=== PATIENT | male | born 1995 | race Caucasian/White ===

== ENCOUNTER 2018-07-14 12:31 | Inpatient (IN) | payer MEDICAID ==
[2018-07-14 12:46] VITALS: BMI 27.0
--- NOTE | 2018-07-14 13:31 | C.PDOC ---
History Of Present Illness 23 year old male presents to the ED requesting alcohol detox. Patient has already been prescreened. He states his last alcohol intake was earlier today. Patient denies suicidal/homicidal ideation. Time Seen by Provider: 07/14/18 13:17 Chief Complaint (Nursing): Substance Abuse History Per: Patient History/Exam Limitations: no limitations Onset/Duration Of Symptoms: Hrs Current Symptoms Are (Timing): Still Present Suicide/Self Injury Attempted (Context): None Modifying Factor(s): Alcohol Associated Symptoms: denies: Suicidal Thoughts, Suicidal Plan Involuntary Hold By: None Recent travel outside of the [place]: No Additional History Per: Patient Past Medical History Reviewed: Historical Data, Nursing Documentation, Vital Signs Vital Signs: Last Vital Signs Temp 98.4 F 07/14/18 12:50 Pulse 104 H 07/14/18 12:50 Resp 18 07/14/18 12:50 BP 148/91 H 07/14/18 12:50 Pulse Ox 96 07/14/18 12:50 - Medical History PMH: No Chronic Diseases Surgical History: No Surg Hx Family History: States: Unknown Family Hx - Social History Hx Alcohol Use: Yes Hx Substance Use: No - Immunization History Hx Tetanus Toxoid Vaccination: No Hx Influenza Vaccination: No Hx Pneumococcal Vaccination: No Review Of Systems Psych: Positive for: Other (alcohol detox ). Negative for: Suicidal ideation Physical Exam - Physical Exam Appears: Non-toxic, No Acute Distress Skin: Normal Color, Warm, Dry Head: Atraumatic, Normacephalic Eye(s): bilateral: Normal Inspection, PERRL, EOMI Oral Mucosa: Moist Neck: Normal ROM, Supple Chest: Symmetrical, No Deformity Cardiovascular: Rhythm Regular, No Friction Rub, No Murmur Respiratory: No Accessory Muscle Use, No Wheezing Gastrointestinal/Abdominal: Soft, No Tenderness Back: Normal Inspection, No CVA Tenderness Extremity: Normal ROM Neurological/Psych: Normal Speech, Normal Cognition Gait: Steady ED Course And Treatment - Laboratory Results Result Diagrams: 07/14/18 13:43 07/14/18 13:43 O2 Sat by Pulse Oximetry: 96 (on RA) Pulse Ox Interpretation: Normal Medical Decision Making Medical Decision Making: Progress: Bloodwork and urinalysis ordered and reviewed. The patient is medically cleared for detox admission Disposition - Disposition Disposition: HOSPITALIZED Disposition Time: 14:39 Condition: STABLE Forms: [facility] (Trinidadian) - POA Present On Arrival: None - Clinical Impression Clinical Impression: Alcohol dependence - PA / LITIGATION SERVICES MANAGER / Resident Statement MD/DO has reviewed & agrees with the documentation as recorded. - Scribe Statement The provider has reviewed the documentation as recorded by the Scribe (Dominique Christianson) All medical record entries made by the Scribe were at my direction and personally dictated by me. I have reviewed the chart and agree that the record accurately reflects my personal performance of the history, physical exam, medical decision making, and the department course for this patient. I have also personally directed, reviewed, and agree with the discharge instructions and disposition.
[2018-07-14 13:55] LABS: URINE BILIRUBIN NEGATIVE (NEGATIVE); URINE CLARITY Clear (Clear); URINE COLOR Colorless (YELLOW); URINE GLUCOSE (UA) NORMAL (Normal); URINE LEUKOCYTE ESTERASE NEG Leu/uL (Negative); URINE PROTEIN NEGATIVE (NEGATIVE); URINE UROBILINOGEN NORMAL mg/dL (0.2-1.0)
[2018-07-14 13:59] LABS: BASO # 0.1 K/uL (0.0-0.2); BASO % 0.5 % (0.0-2.0); EOS # 0.1 K/uL (0.0-0.7); EOS % 1.2 % (0.0-4.0); HEMOGLOBIN 14.5 g/dL (12.0-18.0); LYMPH # 1.3 K/uL (1.0-4.3); LYMPH % 10.4 % (20.0-40.0); MEAN CELL VOLUME 78.4 fL (80.0-94.0); MEAN CORPUSCULAR HEMOGLOBIN 26.2 pg (27.0-31.0); MEAN CORPUSCULAR HGB CONC 33.4 g/dL (33.0-37.0); MEAN PLATELET VOLUME 8.3 fL (7.2-11.7); MONO # 0.7 K/uL (0.0-0.8); MONO % 5.5 % (0.0-10.0); NEUT # 10.2 K/uL (1.8-7.0); NEUT % 82.4 % (50.0-75.0); RBC 5.55 Mil/uL (4.40-5.90); RED CELL DISTRIBUTION WIDTH 14.4 % (11.5-14.5); WHITE BLOOD COUNT 12.4 K/uL (4.8-10.8)
[2018-07-14 14:01] LABS: ALB/GLOB RATIO 1.4 (1.0-2.1); ALBUMIN 4.9 g/dL (3.5-5.0); ALT/SGPT 26 U/L (21-72); AST/SGOT 42 U/L (17-59); BLOOD UREA NITROGEN 7 mg/dL (9-20); CALCIUM 9.4 mg/dl (8.6-10.4); GFR NON-AFRICAN AMERICAN > 60
[2018-07-14 14:03] LABS: URINE BLOOD NEGATIVE (NEGATIVE)
[2018-07-14 14:15] LABS: BARBITURATES, UR NEGATIVE (NEGATIVE); BENZODIAZEPINES, UR NEGATIVE (NEGATIVE); OPIATES, UR NEGATIVE (NEGATIVE); PHENCYCLIDINE, UR NEGATIVE (NEGATIVE)
[2018-07-14] MEDS: Multiple Vitamins Tab PO SCH (17:43)
--- NOTE | 2018-07-14 20:49 | PCM.BM ---
Treatment Plan Problems - Problems identified on initial assessmt Potential for alcohol withdrawal Date Initiated: 07/14/18 Time Initiated: 20:48 Assessment reference: NA Status: Active Treatment assets and liabiliti Patient Assests: cooperative (Alcohol), ADL independent, negotiates basic needs, cognitively intact Patient Liabilities: substance abuse (alcohol) - Milieu Protocol Maintain good personal hygiene: daily Encourage regular showers, daily Remind patient to perform daily oral care, daily Assist patient to perform ADL's Conduct patient checks and document Observation sheet: Q15 minutes Maintain personal safety: every shift Educate patient to report safety concerns to staff, every shift Monitor environment for contraband/sharps Medication safety: Monitor for expected outcome, potential side effects: every shift, Assess barriers to learning: every shift, Assess readiness for medication education: every shift
[2018-07-15] MEDS: Multiple Vitamins Tab PO SCH (09:40)
--- NOTE | 2018-07-15 19:19 | PCM.PSYCH ---
Initial Psychiatric Evaluation - Initial Psychiatric Evaluation Type of Admission: Voluntary Legal Status: Capacity Chief Complaint (in patient's own words): I have problem with alcohol use. History of Present Illness and Precipitating Events: Patient is a 23 years old, single, unemployed, Citizen Of [place] male with history of alcohol use disorder and anxiety was admitted due to withdrawing from alcohol. Alcohol: Patient started alcohol at 15 years of age, increased gradually currently he was drinking 10 pints of beer daily. Last drink was yesterday. Longest period of abstinence was one month about 2 months ago. History of one detox and one rehabilitation. Next Denied use of any other drugs including cocaine, cannabis and heroin. Denied use of cigarettes. Patient was born in [place], moved to [facility] at1 years of age with family. Patient has some college education, not working for last 1 year. Lives with parents and is supported by parents. Never and has no children. Patient height is 6 feet 1 inch and weight is 205 pounds. Current Medications: Active Medications Generic Name Dose Route Start Last Admin Trade Name Freq PRN Reason Stop Dose Admin Chlordiazepoxide 25 mg 07/14/18 18:00 07/15/18 18:29 Librium PO 07/18/18 17:59 25 mg TID VALERIA Administration Taper Chlordiazepoxide 25 mg 07/14/18 17:21 Librium PO Q4H PRN Alcohol Withdrawal Clonidine HCl 0.1 mg 07/14/18 17:21 Catapres PO Q4H PRN Symptoms of alcohol withdrawl Folic Acid 1 mg 07/14/18 17:30 07/15/18 09:40 Folic Acid PO 1 mg DAILY VALERIA Administration Gabapentin 300 mg 07/14/18 18:00 07/15/18 18:29 Neurontin PO 300 mg TID VALERIA Administration Hydroxyzine HCl 25 mg 07/15/18 16:06 07/15/18 16:42 Atarax PO 25 mg Q8 PRN Administration Anxiety Ibuprofen 400 mg 07/14/18 17:23 Motrin Tab PO Q6 PRN Pain, moderate (4-7) Multivitamins 1 tab 07/14/18 17:30 07/15/18 09:40 Hexavitamin PO 1 tab DAILY VALERIA Administration Thiamine HCl 100 mg 07/14/18 17:30 07/15/18 09:40 Vitamin B1 Tab PO 100 mg DAILY VALERIA Administration Trazodone HCl 50 mg 07/14/18 17:21 07/14/18 21:03 Desyrel PO 50 mg HS PRN Administration Insomnia Past Psychiatric History - Past Psychiatric History Previous Treatment History: Inpatient Prior Professional Help: One detox and one rehabilitation. History of Abuse: None reported History of ETOH/Drug Use: See HPI History of Family Illness: None reported Pertinent Medical Hx (Current Medical&Sleep Prob, Allergies): Allergies Allergy/AdvReac Type Severity Reaction Status Date / Time No Known Allergies Allergy Verified 07/14/18 12:45 RX: No Known Home Med 07/14/18 Review of Systems - Psychiatric Psychiatric: As Per HPI, Anxiety Mental Status Examination - Personal Presentation Personal Presentation: Looks stated age - Affect Affect: Other (Appropriate) - Motor Activity Motor Activity: Calm - Reliability in Providing Information Reliability in Providing Information: Fair - Speech Speech: Organized - Mood Mood: Anxious - Formal Thought Process Formal Thought Process: No Impairment - Hallucinations/Delusions Hallucinations: Other (None reported) - Obsessions/Compulsions Obsessions: None Compulsions: None - Cognitive Functions Orientation: Person, Place, Situation, Time Sensorium: Alert Attention/Concentration: Attentive Abstract Thinking: [place] Estimate of Intelligence: Average Judgement: Intact, as evidence by: Insight regarding need for hospitalization Memory: Recent intact, as evidence by: Ability to recall events of the day, Remote intact, as evidenced by: Ability to recall historical events - Risk Risk: Withdrawal, Diminished functioning - Strength & Assets Inventory Strength & Assets Inventory: Family support, Cooperative - Limitations Limitations: Other (Lives with parents.) DSM 5 DX - DSM 5 DSM 5 Diagnosis: Alcohol withdrawal. Alcohol use disorder severe - Recommended/Plan of Treatment Treatment Recommendations and Plan of Treatment: Patient education. Supportive therapy. CBT for relapse prevention. MA for abstinence. We'll start Librium taper for alcohol withdrawal symptoms. Next and other when necessary medications. Projected ELOS: 4-5 days - Smoking Cessation Smoking Cessation Initiated: No Reason for not providing: Patient doesn't smoke cigarettes.
[2018-07-16] MEDS: Multiple Vitamins Tab PO SCH (09:20)
--- NOTE | 2018-07-16 14:44 | PCM.PYCHPN ---
Psychiatric Progress Note - Psychiatric Progress Note Patient seen today, length of contact: 15 minutes Patient Chief Complaint: I'm feeling little better. Problems Identified/Issues Discussed: Patient seen, chart reviewed, case discussed with the staff. Issues related to illness and treatment were discussed with the patient and staff. Reported compliant with treatment with no adverse effects. Tolerating treatment very well. Reported feeling little better. Still has some withdrawal symptoms including anxiety, body aches, decreased sleep. Awake, alert and oriented 3. Calm and cooperative with good eye contact. Mood reported as anxious. Affect appropriate. Treatment discussed with the patient. Needs more time for stabilization. Aftercare discussed with the patient. Denied any delusions, auditory or visual hallucinations, suicidal ideations or homicidal ideations at the time of evaluation. Medical Problems: None reported Diagnostic Results: Reviewed DSM 5 Symptoms Update: Some improvement with treatment. Medication Change: No Medical Record Reviewed: Yes Mental Status Examination - Cognitive Function Orientation: Person, Place, Situation, Time Memory: Intact Attention: WNL Concentration: WNL Association: [facility] Fund of Knowledge: [facility] Decription of patient's judgement and insights: Fair - Mood Mood: Anxious - Affect Affect: Other (Appropriate) - Speech Speech: Appropriate - Formal Thought Process Formal Thought Process: No Impairment Psychotic Thoughts and Behaviors: None - Suicidal Ideation Suicidal Ideation: No - Homicidal Ideation Homicidal Ideation: No Goal/Treatment Plan - Goal/Treatment Plan Need for Continued Stay: Remain at risks for inpatient hospitalization, Discharge may exacerbated symptoms, Severe functional impairment Progress Toward Problem(s) and Goals/Treatment Plan: Patient education. Supportive therapy. CBT for relapse prevention. AR for abstinence. Continue treatment as before. Estimated Date of D/C: 07/19/18 - Smoking Cessation Smoking Cessation Initiated: No
[2018-07-17] MEDS: Multiple Vitamins Tab PO SCH (09:45)
--- NOTE | 2018-07-17 14:45 | PCM.PYCHPN ---
Psychiatric Progress Note - Psychiatric Progress Note Patient seen today, length of contact: 15 minutes Medication Change: Yes (add lexapro and buspar, inderal) Medical Record Reviewed: Yes Mental Status Examination - Cognitive Function Orientation: Person, Place, Situation, Time Memory: Intact Attention: WNL Concentration: WNL Association: WNL Fund of Knowledge: WNL - Mood Mood: Anxious - Affect Affect: Other (Appropriate) - Speech Speech: Appropriate - Formal Thought Process Formal Thought Process: No Impairment - Suicidal Ideation Suicidal Ideation: No - Homicidal Ideation Homicidal Ideation: No Goal/Treatment Plan - Goal/Treatment Plan Need for Continued Stay: Remain at risks for inpatient hospitalization, Discharge may exacerbated symptoms, Severe functional impairment Estimated Date of D/C: 07/19/18
--- NOTE | 2018-07-17 15:42 | RAD ---
Date of service: 07/17/2018 HISTORY: For Rehab Clearance COMPARISON: No prior. TECHNIQUE: Chest PA and lateral FINDINGS: LUNGS: No active pulmonary disease. PLEURA: No significant pleural effusion identified. No pneumothorax apparent. CARDIOVASCULAR: No aortic atherosclerotic calcification present. Normal cardiac size. No pulmonary vascular congestion. OSSEOUS STRUCTURES: Note is made of what appear to represent small cluster like soft tissue calcifications adjacent to the superomedial margins of the bilateral scapula. VISUALIZED UPPER ABDOMEN: Normal. OTHER FINDINGS: None. IMPRESSION: No active disease.
[2018-07-17 16:42] VITALS: RESP 18
[2018-07-18 08:32] VITALS: BP 121/82; PULSE 71; TEMP 97.7; O2SAT 100
--- NOTE | 2018-07-18 08:56 | PCM.PYCHDC ---
Mental Status Examination - Mental Status Examination Orientation: Person Discharge Summary - Discharge Note Consultations:: List each consultation separately and include: 1. Reason for request. 2. Findings. 3. Follow-up Summary of Hospital Course include:: 1. Description of specific treatment plan utilized for patients during their course of treatmen. 2. Summarize the time- course for resolution of acute symptoms and/or regressed behaviors. 3. Describe issues identified and worked on during hospitalization. 4. Describe medication utilized. 5. Describe medical problems identified and treated. 6. Reassessment of suicide risk Summary of Hospital Course: He went to [facility]. He was at times sarcastic and disrespectful. He c/o anxiety a lot. - Final Diagnosis (DSM 5) Condition upon Discharge: STABLE Disposition: HOME/ ROUTINE Prescriptions/Medication Reconciliation: busPIRone [Buspar] 10 mg PO BID #60 tab Escitalopram [Lexapro] 10 mg PO DAILY #30 tab Gabapentin [Neurontin] 400 mg PO TID #90 cap Propranolol [Inderal] 20 mg PO BID #60 tab QUEtiapine [Seroquel] 100 mg PO HS #30 tab traZODone [Desyrel] 50 mg PO HS PRN #30 tab PRN Reason: Insomnia
[2018-07-18] MEDS: Multiple Vitamins Tab PO SCH (09:57)
== END 2018-07-18 10:40 | disposition home or self-care (01) | DRG 751 ==
LOC: C.ER 12:31 → C.7D 14:44
PROVIDERS: ADMIT Psychiatry & Neurology Psychiatry; ATTEND Psychiatry & Neurology Psychiatry
PROC: HZ2ZZZZ Detoxification Services for Substance Abuse Treatment (ICD-10-PCS; principal; 2018-07-14)
PROC: HZ52ZZZ Individual Psychotherapy for Substance Abuse Treatment, Cognitive-Behavioral (ICD-10-PCS; 2018-07-14)
PROC: HZ56ZZZ Individual Psychotherapy for Substance Abuse Treatment, Psychoeducation (ICD-10-PCS; 2018-07-14)
PROC: HZ42ZZZ Group Counseling for Substance Abuse Treatment, Cognitive-Behavioral (ICD-10-PCS; 2018-07-14)
PROC: HZ46ZZZ Group Counseling for Substance Abuse Treatment, Psychoeducation (ICD-10-PCS; 2018-07-14)
PROC: GZHZZZZ Group Psychotherapy (ICD-10-PCS; 2018-07-14)
PROC: GZ58ZZZ Individual Psychotherapy, Cognitive-Behavioral (ICD-10-PCS; 2018-07-14)
PROC: GZ56ZZZ Individual Psychotherapy, Supportive (ICD-10-PCS; 2018-07-14)
PROC: HZ59ZZZ Individual Psychotherapy for Substance Abuse Treatment, Supportive (ICD-10-PCS; 2018-07-14)
DX: F10.230 Alcohol dependence with withdrawal, uncomplicated (principal); Y90.6 Blood alcohol level of 120-199 mg/100 ml; F41.9 Anxiety disorder, unspecified; G47.00 Insomnia, unspecified

== ENCOUNTER 2018-08-28 18:26 | Inpatient (IN) | payer MEDICAID ==
[2018-08-28 18:27] VITALS: BMI 27.0
--- NOTE | 2018-08-28 19:08 | C.PDOC ---
History Of Present Illness 23 year old male presents to the ED requesting detox for alcohol abuse. Patient reports his last drink was a couple of hours POISER BALANCE. Patient denies SI/HI, hallucinations, injury, fall, trauma. Time Seen by Provider: 08/28/18 19:08 Chief Complaint (Nursing): Substance Abuse History Per: Patient History/Exam Limitations: intoxication Onset/Duration Of Symptoms: Hrs Current Symptoms Are (Timing): Still Present Suicide/Self Injury Attempted (Context): None Modifying Factor(s): Alcohol Associated Symptoms: denies: Depression, Suicidal Thoughts, Suicidal Plan Recent travel outside of the [place] States: No Additional History Per: Patient Past Medical History Reviewed: Historical Data, Nursing Documentation, Vital Signs Vital Signs: Last Vital Signs Temp 98.1 F 08/28/18 18:41 Pulse 111 H 08/28/18 18:41 Resp 20 08/28/18 18:41 BP 146/90 08/28/18 18:41 Pulse Ox 98 08/28/18 18:41 - Medical History PMH: No Chronic Diseases Surgical History: No Surg Hx - [facility] DETOXIFICATION SERVICES FOR SUBSTANCE ABUSE TREATMENT (07/14/18) GROUP TREE TAPPING LABORER FOR SUBSTANCE ABUSE TREATMENT, PSYCHOEDUCATION (07/14/18) GROUP TREE TAPPING LABORER FOR SUBSTANCE ABUSE, COGNITIVE BEHAVIORAL (07/14/18) GROUP PSYCHOTHERAPY (07/14/18) INDIV PSYCHOTHERAPY FOR SUBSTANCE ABUSE TREATMENT, SUPPORT (07/14/18) INDIV PSYCHOTHERAPY FOR SUBSTANCE ABUSE, COGNITIV BEHAVIORAL (07/14/18) INDIV PSYCHOTHERAPY FOR SUBSTANCE ABUSE, PSYCHOEDUCATION (07/14/18) INDIVIDUAL PSYCHOTHERAPY, COGNITIVE-BEHAVIORAL (07/14/18) INDIVIDUAL PSYCHOTHERAPY, SUPPORTIVE (07/14/18) Family History: States: Unknown Family Hx - Social History Hx Alcohol Use: Yes Hx Substance Use: Yes - Immunization History Hx Tetanus Toxoid Vaccination: No Hx Influenza Vaccination: No Hx Pneumococcal Vaccination: No Review Of Systems Constitutional: Negative for: Fever, Chills Cardiovascular: Negative for: Chest Pain Respiratory: Negative for: Shortness of Breath Gastrointestinal: Negative for: Nausea, Vomiting, Abdominal Pain Skin: Negative for: Rash Psych: Negative for: Depression, Suicidal ideation Physical Exam - Physical Exam Appears: Non-toxic, No Acute Distress Skin: Warm, Dry Head: Normacephalic Eye(s): bilateral: Normal Inspection Neck: Supple Chest: Symmetrical Cardiovascular: Rhythm Regular Respiratory: No Rales, No Rhonchi, No Wheezing Gastrointestinal/Abdominal: Soft, No Tenderness, No Guarding, No Rebound Back: Normal Inspection Extremity: Normal ROM Extremity: Bilateral: Atraumatic, Normal Color And Temperature, Normal ROM Neurological/Psych: Oriented x3, Normal Speech, Normal Cognition Gait: Steady ED Course And Treatment - Laboratory Results Result Diagrams: 08/28/18 19:25 08/28/18 19:25 O2 Sat by Pulse Oximetry: 98 (ON RA) Pulse Ox Interpretation: Normal Progress Note: Plan: - Labs. - UA. - Crisis eval Disposition Discussed With Dr.: Judith Winkler Comment: accepted the pt on his service and took over the care at 8:30 PM Doctor Will See Patient In The: Hospital Counseled Patient/Family Regarding: Studies Performed, Diagnosis - Disposition Disposition: HOSPITALIZED Disposition Time: 19:08 Condition: FAIR Forms: [facility] (Belizean) - POA Present On Arrival: Poor Glycemic Control - Clinical Impression Clinical Impression: Alcohol dependence - Scribe Statement The provider has reviewed the documentation as recorded by the Scribe Hiram Bettencourt All medical record entries made by the Scribe were at my direction and personally dictated by me. I have reviewed the chart and agree that the record accurately reflects my personal performance of the history, physical exam, medical decision making, and the department course for this patient. I have also personally directed, reviewed, and agree with the discharge instructions and disposition. Decision To Admit - Pt Status Changed To: Hospital Disposition Of: Inpatient - Admit Certification Admit to Inpatient:: After my assessment, the patient will require hospitalization for at least two midnights. This is because of the severity of symptoms shown, intensity of services needed, and/or the medical risk in this patient being treated as an outpatient. - InPatient: Physician Admission Certification: I certify that this patient requires 2 or m ore midnights of care for the following reason:: After my assessment, the patient will require hospitalization for at least two midnights. This is because of the severity of symptoms shown, intensity of services needed, and/or the medical risk in this patient being treated as an outpatient. - . Bed Request Type: Detox Admitting Physician: Judith Winkler Patient Diagnosis: Alcohol dependence
[2018-08-28 19:29] LABS: BASO # 0.1 K/uL (0.0-0.2); EOS # 0.2 K/uL (0.0-0.7); EOS % 2.8 % (0.0-4.0); HEMOGLOBIN 14.8 g/dL (12.0-18.0); LYMPH # 1.2 K/uL (1.0-4.3); MEAN CELL VOLUME 77.4 fL (80.0-94.0); MEAN CORPUSCULAR HEMOGLOBIN 25.6 pg (27.0-31.0); MEAN CORPUSCULAR HGB CONC 33.1 g/dL (33.0-37.0); MONO # 0.3 K/uL (0.0-0.8); MONO % 5.2 % (0.0-10.0); NEUT # 3.9 K/uL (1.8-7.0); NRBC % 0.2 % (0.0-2.0); RBC 5.79 Mil/uL (4.40-5.90); RED CELL DISTRIBUTION WIDTH 15.3 % (11.5-14.5)
[2018-08-28 19:30] LABS: WHITE BLOOD COUNT 5.7 K/uL (4.8-10.8)
[2018-08-28 19:32] LABS: URINE BILIRUBIN NEGATIVE (NEGATIVE); URINE BLOOD NEGATIVE (NEGATIVE); URINE CLARITY Clear (Clear); URINE COLOR Colorless (YELLOW); URINE GLUCOSE (UA) NORMAL (Normal); URINE LEUKOCYTE ESTERASE NEG Leu/uL (Negative); URINE PROTEIN NEGATIVE (NEGATIVE); URINE UROBILINOGEN NORMAL mg/dL (0.2-1.0)
[2018-08-28 19:44] LABS: ALB/GLOB RATIO 1.7 (1.0-2.1); ALBUMIN 5.3 g/dL (3.5-5.0); ALT/SGPT 155 U/L (21-72); AST/SGOT 203 U/L (17-59); BLOOD UREA NITROGEN 4 mg/dL (9-20); CALCIUM 9.8 mg/dl (8.6-10.4); GFR NON-AFRICAN AMERICAN > 60
[2018-08-28 19:55] LABS: OPIATES, UR NEGATIVE (NEGATIVE); PHENCYCLIDINE, UR NEGATIVE (NEGATIVE)
[2018-08-28 20:16] LABS: BARBITURATES, UR NEGATIVE (NEGATIVE); BENZODIAZEPINES, UR NEGATIVE (NEGATIVE)
--- NOTE | 2018-08-28 20:53 | PCM.BM ---
<Susanna Patel - Last Filed: 08/28/18 20:52> Treatment Plan Problems - Problems identified on initial assessmt Anxiety related to substance Use Date Initiated: 08/28/18 Time Initiated: 20:52 Assessment reference: NA Status: Active Low Motivation to change Date Initiated: 08/28/18 Time Initiated: 20:52 Assessment reference: NA Status: Active Knowledge Deficit: Alcohol Use Date Initiated: 08/28/18 Time Initiated: 20:53 Assessment reference: NA Status: Active Treatment assets and liabiliti Patient Assests: cooperative (Alcohol), ADL independent, negotiates basic needs, cognitively intact Patient Liabilities: substance abuse (ETOH), medical problems (Seizure disorder) - Milieu Protocol Maintain good personal hygiene: daily Encourage regular showers, daily Remind patient to perform daily oral care, daily Assist patient to perform ADL's Conduct patient checks and document Observation sheet: Q15 minutes Maintain personal safety: every shift Educate patient to report safety concerns to staff, every shift Monitor environment for contraband/sharps Medication safety: Monitor for expected outcome, potential side effects: every shift, Assess barriers to learning: every shift, Assess readiness for medication education: every shift <Alexandra Faye - Last Filed: 08/29/18 14:48> - Diagnosis (1) Alcohol dependence Status: Acute Interventions: 08/29/18 14:48 * Assess 7x/week regarding severity of withdrawal * Educate regarding risks, benefits, side effects and alternatives of medications * Use Motivational Interviewing for abstinence * Use CBT for relapse prevention * Medication management for withdrawal symptoms * Encourage medication assisted treatment *
[2018-08-28] MEDS ORDERED: Aluminum Hydroxide/Magnesium Hydroxide Susp (30 mL) PO PRN (23:16)
[2018-08-29] MEDS: Multiple Vitamins Tab PO SCH (09:40)
--- NOTE | 2018-08-29 10:00 | PCM.PSYCH ---
Initial Psychiatric Evaluation - Initial Psychiatric Evaluation Type of Admission: Voluntary Legal Status: Capacity Chief Complaint (in patient's own words): "I am withdrawing now" History of Present Illness and Precipitating Events: 23 yo male pt, single, unemployed, living with his parents in [place], presents for detox from alcohol. Pt reports drinking 10 of the 24 oz beers and some vodka daily for the past 8 years. He started drinking at age 15 when he began partying and then it "got out of hand." His longest period of sobriety was 2 months while in an inpatient rehab. He has never attended AA meetings but has attended rehab and detox programs, most recently he was at [facility] detox. Pt reports a hx of blackouts and one seizure (alcohol related) in May 2018 but denies any DTs. Pt admits to daily marijuana use but denies any tobacco or illicit drug use. Pt currently denies any SI or HI. PMHx: denies Psych Hx: AMAYA Pt states he was taking Seroquel, Buspar, and Gabapentin for his anxiety but stopped being compliant after relapsing. Family Psych Hx: none Current Medications: Active Medications Generic Name Dose Route Start Last Admin Trade Name Freq PRN Reason Stop Dose Admin Al Hydrox/Mg Hydrox/Simethicone 30 ml 08/28/18 23:16 Maalox 30 Ml PO TID PRN Indigestion / Heartburn Clonidine HCl 0.1 mg 08/28/18 20:56 08/28/18 21:48 Catapres PO 0.1 mg Q6 PRN Administration hypertension Folic Acid 1 mg 08/29/18 10:00 08/29/18 09:40 Folic Acid PO 1 mg DAILY VALERIA Administration Hydroxyzine HCl 25 mg 08/28/18 20:57 08/29/18 06:31 Atarax PO 25 mg Q6 PRN Administration Anxiety Loperamide HCl 2 mg 08/28/18 23:16 Imodium PO Q8 PRN Diarrhea Lorazepam 1 mg 08/28/18 20:53 08/28/18 21:48 Ativan PO 1 mg Q4 PRN Administration alcohol withdrawal Lorazepam 1 mg 08/29/18 10:00 Ativan PO 09/02/18 09:59 Q4 VALERIA Taper Multivitamins 1 tab 08/29/18 10:00 08/29/18 09:40 Hexavitamin PO 1 tab DAILY VALERIA Administration Ondansetron HCl 4 mg 08/28/18 23:16 Zofran Tab PO Q8 PRN Nausea/Vomiting Pseudoephedrine HCl 60 mg 08/28/18 23:16 Sudafed Tab PO QID PRN Nasal/Sinus Congestion Thiamine HCl 100 mg 08/29/18 10:00 08/29/18 09:40 Vitamin B1 Tab PO Not Given DAILY VALERIA Trazodone HCl 100 mg 08/28/18 20:52 08/28/18 21:48 Desyrel PO 100 mg HS PRN Administration insomnia Past Psychiatric History - Past Psychiatric History Previous Treatment History: None Pertinent Medical Hx (Current Medical&Sleep Prob, Allergies): Allergies Allergy/AdvReac Type Severity Reaction Status Date / Time No Known Allergies Allergy Verified 08/28/18 18:41 No Known Home Med 08/28/18 Review of Systems - Psychiatric Psychiatric: Abnormal Sleep Pattern, Anhedonia, Anxiety, Change in Appetite, Depression, Difficulty Concentrating. absent: Homicidal Ideation, Suicidal Ideation Mental Status Examination - Personal Presentation Personal Presentation: Looks stated age - Affect Affect: Constricted - Motor Activity Motor Activity: Calm - Reliability in Providing Information Reliability in Providing Information: Good - Speech Speech: Organized - Mood Mood: Anxious - Formal Thought Process Formal Thought Process: No Impairment - Cognitive Functions Orientation: Person, Place, Situation, Time Sensorium: Alert Attention/Concentration: Attentive Estimate of Intelligence: Average Judgement: Intact, as evidence by: Insight regarding need for hospitalization Memory: Recent intact, as evidence by: Ability to recall events of the day, Remote intact, as evidenced by: Abilit to recall sig. life events - Risk Risk: Withdrawal, Diminished functioning - Strength & Assets Inventory Strength & Assets Inventory: Cooperative - Limitations Limitations: Living alone, Other DSM 5 DX - DSM 5 DSM 5 Diagnosis: Alcohol withdrawal Alcohol use disorder, severe Cannabis use disorder Generalized anxiety disorder - Recommended/Plan of Treatment Treatment Recommendations and Plan of Treatment: Taper with ativan Gabapentin for augmentation Inderal for anxiety Topamax for cravings Start on folic acid, thiamine, multivitamins, Seroquel As needed medications Maalox, Clonidine, Atarax, Imodium, Zofran Ativan, Suda fed, Trazadone All risks, benefits and alternatives of the meds discussed, and the pt agreed and understood. Attend groups and activities Supportive therapy and psychoeducation CT for abstinence CBT for relapse prevention Encourage MAT Refer to rehab or IOP, and self-help groups Teach healthy lifestyle methods, i.e. diet, exercise, meditation Smoking cessation with CT Nicotine patch if needed 36 min Projected ELOS: 4-5 days Prognosis: good w treatment - Smoking Cessation Smoking Cessation Initiated: Yes
[2018-08-30] MEDS: Multiple Vitamins Tab PO SCH (10:12)
[2018-08-30 20:51] VITALS: O2SAT 99
[2018-08-31 08:12] LABS: ALB/GLOB RATIO 1.7 (1.0-2.1); ALBUMIN 4.8 g/dL (3.5-5.0); ALT/SGPT 132 U/L (21-72); AST/SGOT 131 U/L (17-59); BLOOD UREA NITROGEN 12 mg/dL (9-20); CALCIUM 9.4 mg/dl (8.6-10.4); GFR NON-AFRICAN AMERICAN > 60
[2018-08-31 09:27] VITALS: BP 101/68; PULSE 86; RESP 19; TEMP 97.7
--- NOTE | 2018-08-31 10:02 | PCM.PYCHDC ---
Mental Status Examination - Mental Status Examination Orientation: Person, Place, Situation, Time Memory: Intact Mood: Anxious, Other (irate) Affect: Other (intense) Speech: Loud Attention: WNL Concentration: Poor Association: WNL Fund of Knowledge: WNL Formal Thought Process: No Impairment Suicidal Ideation: No Current Homicidal Ideation?: No Discharge Summary - Discharge Note Reason for Hospitalization: Alcohol withdrawal Laboratory Data: Abnormal Lab Results 08/31/18 07:51 Sodium 135 Potassium 3.5 L Chloride 101 Carbon Dioxide 24 Anion Gap 14 BUN 12 Creatinine 0.8 Est GFR ( Amer) > 60 Est GFR (Non-Af Amer) > 60 Random Glucose 82 D Calcium 9.4 Magnesium 1.9 Total Bilirubin 1.0 AST 131 H D ALT 132 H Alkaline Phosphatase 68 Total Protein 7.7 Albumin 4.8 Globulin 2.9 Albumin/Globulin Ratio 1.7 Consultations:: List each consultation separately and include: 1. Reason for request. 2. Findings. 3. Follow-up Summary of Hospital Course include:: 1. Description of specific treatment plan utilized for patients during their course of treatmen. 2. Summarize the time- course for resolution of acute symptoms and/or regressed behaviors. 3. Describe issues identified and worked on during hospitalization. 4. Describe medication utilized. 5. Describe medical problems identified and treated. 6. Reassessment of suicide risk Summary of Hospital Course: On admission: 23 yo male pt, single, unemployed, living with his parents in [place], presents for detox from alcohol. Pt reports drinking 10 of the 24 oz beers and some vodka daily for the past 8 years. He started drinking at age 15 when he began partying and then it "got out of hand." His longest period of sobriety was 2 months while in an inpatient rehab. He has never attended AA meetings but has attended rehab and detox programs, most recently he was at [facility] [place] detox. Pt reports a hx of blackouts and one seizure (alcohol related) in May 2018 but denies any DTs. Pt admits to daily marijuana use but denies any tobacco or illicit drug use. Pt currently denies any SI or HI. PMHx: denies Psych Hx: AMAYA Pt states he was taking Seroquel, Buspar, and Gabapentin for his anxiety but stopped being compliant after relapsing. Family Psych Hx: none Hospital course: The pt was admitted and started on treatment with psychotherapy, support, psychoeducation and medications. [place] and CBT used. The pt attended groups and activities, as well as milieu therapy. All the risks and benefits of medications are discussed and the patient underst ood and agreed. However, he kept insisting more and more meds (despite having an impaired liver and despite senior technical writer's flexibility and trying to accommodate his needs). Just like in the last admission, he was easily irate, intimidating, loud at times, and staff-splitting, belittling and security called twice. He asked for d/c today, despite risks, and when he heard that he will not a get a prescription for "higher dose" of seroquel he cursed at the senior technical writer and stormed out, saying he wants to punch someone. He is escorted out by security. He has improved and had no SI, HI and no objective withdrawal sxs on discharge. - Final Diagnosis (DSM 5) Condition upon Discharge: IMPROVED DSM 5: Alcohol withdrawal Alcohol use disorder, severe Cannabis use disorder Generalized anxiety disorder Borderline Personality Disorder Disposition: AGAINST MEDICAL ADVICE Follow-up Treatment Plan: Use relapse prevention skills Return to ER or call 911 if suicidal, homicidal or symptoms relapse. Stay away from stress, alcohol and drugs. See primary doctor regularly and get labs. He is also advised to attend AA and go to [facility] for rx and other treatment. - Smoking Cessation Smoking Cessation Medication prescribed: No - Antipsychotic Medications Pt discharged on 2 or more routine antipsychotic medications: No
--- NOTE | 2018-08-31 10:03 | PCM.PYCHPN ---
Psychiatric Progress Note - Psychiatric Progress Note Patient seen today, length of contact: 17 min Patient Chief Complaint: "I am anxious" Problems Identified/Issues Discussed: The pt is seen, chart reviewed, case discussed with staff. The pt is compliant with medications and reports no side-effects. Symptoms are improving but needs more time to stabilize. He is again (like last time) med-seeking, angry easily, demanding and rude to staff. Pt attends groups and activities but doesn't participate properly; belittles everything. Support given, psycho-education provided. Limit setting provided. After care discussed. Medication Change: Yes (increase seroquel to 200 mg Detox changes daily) Medical Record Reviewed: Yes Mental Status Examination - Cognitive Function Orientation: Person, Place, Situation, Time Memory: Intact Attention: WNL Concentration: Poor Association: WNL Fund of Knowledge: WNL - Mood Mood: Anxious, Other (irate) - Affect Affect: Other (intense) - Speech Speech: Loud - Formal Thought Process Formal Thought Process: No Impairment - Suicidal Ideation Suicidal Ideation: No - Homicidal Ideation Homicidal Ideation: No Goal/Treatment Plan - Goal/Treatment Plan Need for Continued Stay: Discharge may exacerbated symptoms, Severe functional impairment Progress Toward Problem(s) and Goals/Treatment Plan: Taper with ativan Gabapentin for augmentation Seroquel for insomnia and irritability Inderal for anxiety Topamax for cravings Start on folic acid, thiamine, multivitamins, As needed medications Maalox, Clonidine, Atarax, Imodium, Zofran Ativan, Sudafed, Trazadone All risks, benefits and alternatives of the meds discussed, and the pt agreed and understood. Attend groups and activities Supportive therapy and psychoeducation CA for abstinence CBT for relapse prevention Encourage MAT Refer to rehab or IOP, and self-help groups Teach healthy lifestyle methods, i.e. diet, exercise, meditation Smoking cessation with CA Nicotine patch if needed
== END 2018-08-31 09:25 | disposition left against medical advice (07) | DRG 749 ==
LOC: C.ER 18:26 → C.7D 20:36
PROVIDERS: ADMIT Psychiatry & Neurology Psychiatry; ATTEND Psychiatry & Neurology Psychiatry
PROC: HZ2ZZZZ Detoxification Services for Substance Abuse Treatment (ICD-10-PCS; principal; 2018-08-28)
PROC: HZ52ZZZ Individual Psychotherapy for Substance Abuse Treatment, Cognitive-Behavioral (ICD-10-PCS; 2018-08-28)
PROC: HZ59ZZZ Individual Psychotherapy for Substance Abuse Treatment, Supportive (ICD-10-PCS; 2018-08-28)
PROC: HZ56ZZZ Individual Psychotherapy for Substance Abuse Treatment, Psychoeducation (ICD-10-PCS; 2018-08-28)
PROC: HZ42ZZZ Group Counseling for Substance Abuse Treatment, Cognitive-Behavioral (ICD-10-PCS; 2018-08-28)
PROC: HZ46ZZZ Group Counseling for Substance Abuse Treatment, Psychoeducation (ICD-10-PCS; 2018-08-28)
PROC: GZHZZZZ Group Psychotherapy (ICD-10-PCS; 2018-08-28)
PROC: GZ58ZZZ Individual Psychotherapy, Cognitive-Behavioral (ICD-10-PCS; 2018-08-28)
PROC: GZ56ZZZ Individual Psychotherapy, Supportive (ICD-10-PCS; 2018-08-28)
DX: F10.230 Alcohol dependence with withdrawal, uncomplicated (principal); Y90.8 Blood alcohol level of 240 mg/100 ml or more; F12.10 Cannabis abuse, uncomplicated; F41.1 Generalized anxiety disorder; F60.3 Borderline personality disorder; G47.00 Insomnia, unspecified; G40.909 Epilepsy, unspecified, not intractable, without status epilepticus

== ENCOUNTER 2018-11-17 23:02 | Emergency (ER) | payer MEDICAID ==
[2018-11-17 23:02] VITALS: BMI 27.0
[2018-11-17 23:08] VITALS: BP 129/84; PULSE 93; RESP 20; TEMP 98.3; O2SAT 100
[2018-11-18 01:21] LABS: BASO % 0.5 % (0.0-2.0); EOS # 0.2 K/uL (0.0-0.7); EOS % 3.9 % (0.0-4.0); HEMOGLOBIN 14.2 g/dL (12.0-18.0); LYMPH # 2.7 K/uL (1.0-4.3); LYMPH % 48.4 % (20.0-40.0); MEAN CELL VOLUME 80.1 fL (80.0-94.0); MEAN CORPUSCULAR HEMOGLOBIN 26.4 pg (27.0-31.0); MEAN PLATELET VOLUME 8.1 fL (7.2-11.7); MONO # 0.3 K/uL (0.0-0.8); MONO % 5.7 % (0.0-10.0); NEUT # 2.3 K/uL (1.8-7.0); NEUT % 41.5 % (50.0-75.0); NRBC % 0.1 % (0.0-2.0); RBC 5.4 Mil/uL (4.40-5.90); RED CELL DISTRIBUTION WIDTH 14.9 % (11.5-14.5); WHITE BLOOD COUNT 5.7 K/uL (4.8-10.8)
[2018-11-18 01:22] LABS: URINE BILIRUBIN NEGATIVE (NEGATIVE); URINE BLOOD NEGATIVE (NEGATIVE); URINE CLARITY Clear (Clear); URINE COLOR Yellow (YELLOW); URINE GLUCOSE (UA) NORMAL (Normal); URINE LEUKOCYTE ESTERASE NEG Leu/uL (Negative); URINE PROTEIN NEGATIVE (NEGATIVE); URINE UROBILINOGEN NORMAL mg/dL (0.2-1.0)
--- NOTE | 2018-11-18 01:36 | C.PDOC ---
History Of Present Illness 23 year old male presents to the ED requesting detox for alcohol abuse. Patient denies SI/HI, hallucinations, other medical complaints at this time. Time Seen by Provider: 11/17/18 23:19 Chief Complaint (Nursing): Substance Abuse History Per: Patient History/Exam Limitations: no limitations Onset/Duration Of Symptoms: Hrs Current Symptoms Are (Timing): Still Present Suicide/Self Injury Attempted (Context): None Modifying Factor(s): Alcohol Associated Symptoms: denies: Depression, Suicidal Thoughts, Suicidal Plan Additional History Per: Patient Past Medical History Reviewed: Historical Data, Nursing Documentation, Vital Signs Vital Signs: Last Vital Signs Temp 98.3 F 11/17/18 23:05 Pulse 93 H 11/17/18 23:05 Resp 20 11/17/18 23:05 BP 129/84 11/17/18 23:05 Pulse Ox 100 11/17/18 23:05 - Medical History PMH: Anxiety, Depression, Seizures (alcoholic seiZure) Denies: Diabetes (Patient denied.), Hepatitis (Patient denied.), HIV (Patient denied.), HTN (Patient denied.), Sexually Transmitted Disease (Patient denied.) Surgical History: No Surg Hx - [facility] Procedures DETOXIFICATION SERVICES FOR SUBSTANCE ABUSE TREATMENT (08/28/18) GROUP IRON PELLET TESTER FOR SUBSTANCE ABUSE TREATMENT, PSYCHOEDUCATION (08/28/18) GROUP IRON PELLET TESTER FOR SUBSTANCE ABUSE, COGNITIVE BEHAVIORAL (08/28/18) GROUP PSYCHOTHERAPY (08/28/18) INDIV PSYCHOTHERAPY FOR SUBSTANCE ABUSE TREATMENT, SUPPORT (08/28/18) INDIV PSYCHOTHERAPY FOR SUBSTANCE ABUSE, COGNITIV BEHAVIORAL (08/28/18) INDIV PSYCHOTHERAPY FOR SUBSTANCE ABUSE, PSYCHOEDUCATION (08/28/18) INDIVIDUAL PSYCHOTHERAPY, COGNITIVE-BEHAVIORAL (08/28/18) INDIVIDUAL PSYCHOTHERAPY, SUPPORTIVE (08/28/18) Family History: States: Unknown Family Hx - Social History Hx Alcohol Use: Yes Hx Substance Use: Yes - Immunization History Hx Tetanus Toxoid Vaccination: No Hx Influenza Vaccination: No Hx Pneumococcal Vaccination: No Review Of Systems Except As Marked, All Systems Reviewed And Found Negative. Cardiovascular: Negative for: Chest Pain Respiratory: Negative for: Shortness of Breath Physical Exam - Physical Exam Additional Physical Exam Comments: Constitutional: No acute distress. Head: Normocephalic. Atraumatic. Eyes: PERRL. ENT: Moist mucous membranes. Neck: Supple. Cardiovascular: Regular rate. Radial pulse 2+ bilaterally. Chest: No tenderness. Respiratory: Clear to auscultation bilaterally. GI: Soft. Nontender. Nondistended. Back: No CVA tenderness. Musculoskeletal: No tenderness or swelling of extremities. Skin: No rash. Neurologic: Alert, no focal deficit. ED Course And Treatment - Laboratory Results Result Diagrams: 11/18/18 01:16 11/18/18 01:16 O2 Sat by Pulse Oximetry: 100 (ON RA) Pulse Ox Interpretation: Normal Medical Decision Making Medical Decision Making: Plan: Discussed with precision printing worker, patient is not a candidate as he was recently D/C from another facility. Disposition - Disposition Disposition: HOME/ ROUTINE Disposition Time: 01:45 Condition: GOOD Instructions: Alcohol Abuse and Alcoholism (DC) Forms: [facility] [employer] [facility] (Italian) - Clinical Impression Clinical Impression: Alcohol intoxication - Scribe Statement The provider has reviewed the documentation as recorded by the Scribe Hiram Bettencourt All medical record entries made by the Scribe were at my direction and p ersonally dictated by me. I have reviewed the chart and agree that the record accurately reflects my personal performance of the history, physical exam, medical decision making, and the department course for this patient. I have also personally directed, reviewed, and agree with the discharge instructions and disposition.
[2018-11-18 01:43] LABS: ALB/GLOB RATIO 1.5 (1.0-2.1); ALBUMIN 4.8 g/dL (3.5-5.0); ALT/SGPT 26 U/L (21-72); AST/SGOT 48 U/L (17-59); BLOOD UREA NITROGEN 7 mg/dL (9-20); CALCIUM 9.3 mg/dl (8.6-10.4); GFR NON-AFRICAN AMERICAN > 60
[2018-11-18 01:51] LABS: BARBITURATES, UR NEGATIVE (NEGATIVE); OPIATES, UR NEGATIVE (NEGATIVE); PHENCYCLIDINE, UR NEGATIVE (NEGATIVE)
[2018-11-18 01:58] LABS: BENZODIAZEPINES, UR POSITIVE (NEGATIVE)
== END 2018-11-18 02:12 | disposition home or self-care (01) ==
LOC: C.ER 23:02
DX: F10.129 Alcohol abuse with intoxication, unspecified (principal); Y90.8 Blood alcohol level of 240 mg/100 ml or more

== ENCOUNTER 2018-11-27 05:22 | Emergency (ER) | payer MEDICAID ==
[2018-11-27 05:23] VITALS: BMI 27.0
[2018-11-27 05:33] VITALS: BP 120/80; PULSE 80; RESP 20; TEMP 98.6; O2SAT 95
--- NOTE | 2018-11-27 05:40 | C.PDOC ---
History Of Present Illness 23 year old male presents to the ED requesting detox for alcohol abuse. Patient admits to drinking MACHINE BENDER. Patient denies SI/HI, hallucinations, injury, fall, trauma. Chief Complaint (Nursing): Substance Abuse History Per: Patient History/Exam Limitations: intoxication Onset/Duration Of Symptoms: Hrs Current Symptoms Are (Timing): Still Present Suicide/Self Injury Attempted (Context): None Modifying Factor(s): Alcohol Associated Symptoms: denies: Depression, Suicidal Thoughts, Suicidal Plan Recent travel outside of the [place]: No Additional History Per: Patient Past Medical History Reviewed: Historical Data, Nursing Documentation, Vital Signs Vital Signs: Last Vital Signs Temp 98.6 F 11/27/18 05:30 Pulse 80 11/27/18 05:30 Resp 20 11/27/18 05:30 BP 120/80 11/27/18 05:30 Pulse Ox 95 11/27/18 05:30 - Medical History PMH: Anxiety, Depression, Seizures (alcoholic seiZure) Denies: Diabetes (Patient denied.), Hepatitis (Patient denied.), HIV (Patient denied.), HTN (Patient denied.), Sexually Transmitted Disease (Patient denied.) Surgical History: No Surg Hx - [facility] Procedures DETOXIFICATION SERVICES FOR SUBSTANCE ABUSE TREATMENT (08/28/18) GROUP HAND CARVER FOR SUBSTANCE ABUSE TREATMENT, PSYCHOEDUCATION (08/28/18) GROUP HAND CARVER FOR SUBSTANCE ABUSE, COGNITIVE BEHAVIORAL (08/28/18) GROUP PSYCHOTHERAPY (08/28/18) INDIV PSYCHOTHERAPY FOR SUBSTANCE ABUSE TREATMENT, SUPPORT (08/28/18) INDIV PSYCHOTHERAPY FOR SUBSTANCE ABUSE, COGNITIV BEHAVIORAL (08/28/18) INDIV PSYCHOTHERAPY FOR SUBSTANCE ABUSE, PSYCHOEDUCATION (08/28/18) INDIVIDUAL PSYCHOTHERAPY, COGNITIVE-BEHAVIORAL (08/28/18) INDIVIDUAL PSYCHOTHERAPY, SUPPORTIVE (08/28/18) Family History: States: Unknown Family Hx - Social History Hx Alcohol Use: Yes Hx Substance Use: Yes - Immunization History Hx Tetanus Toxoid Vaccination: No Hx Influenza Vaccination: No Hx Pneumococcal Vaccination: No Review Of Systems Constitutional: Negative for: Fever, Chills Cardiovascular: Negative for: Chest Pain Respiratory: Negative for: Shortness of Breath Gastrointestinal: Negative for: Nausea, Vomiting, Abdominal Pain Skin: Negative for: Rash Psych: Negative for: Depression, Suicidal ideation Physical Exam - Physical Exam Appears: Non-toxic, No Acute Distress, Other (slight AOB) Skin: Normal Color, Warm, Dry Head: Atraumatic, Normacephalic Eye(s): bilateral: Normal Inspection Neck: Normal ROM, Supple Chest: Symmetrical Cardiovascular: Rhythm Regular Respiratory: Normal Breath Sounds, No Rales, No Rhonchi, No Wheezing Gastrointestinal/Abdominal: Soft, No Tenderness, No Distention Extremity: Normal ROM, No Tenderness, No Swelling Neurological/Psych: Oriented x3, Normal Speech, Normal Cognition Gait: Steady ED Course And Treatment O2 Sat by Pulse Oximetry: 95 (On RA) Pulse Ox Interpretation: Normal Medical Decision Making Medical Decision Making: Plan: * Labs * UA Disposition Counseled Patient/Family Regarding: Diagnosis - Disposition Referrals: [facility] [Outside] Disposition: HOME/ ROUTINE Disposition Time: 05:46 Condition: STABLE Instructions: Alcohol Abuse and Alcoholism (DC) Forms: [facility] ([place]) - POA Present On Arrival: None - Clinical Impression Clinical Impression: Alcohol abuse - Scribe Statement The provider has reviewed the documentation as recorded by the Scribe Hiram Bettencourt All medical record entries made by the Scribe were at my direction and personally dictated by me. I have reviewed the chart and agree that the record accurately reflects my personal performance of the history, physical exam, medical decision making, and the department course for this patient. I have also personally directed, reviewed, and agree with the discharge instructions and disposition.
== END 2018-11-27 05:52 | disposition home or self-care (01) ==
LOC: C.ER 05:22
DX: F10.10 Alcohol abuse, uncomplicated (principal)

== ENCOUNTER 2018-12-10 03:14 | Inpatient (IN) | payer MEDICAID ==
[2018-12-10 03:15] VITALS: BMI 27.0
[2018-12-10 04:08] LABS: BASO # 0.1 K/uL (0.0-0.2); BASO % 1.1 % (0.0-2.0); EOS # 0.5 K/uL (0.0-0.7); EOS % 7.9 % (0.0-4.0); HEMOGLOBIN 14.4 g/dL (12.0-18.0); LYMPH # 2.8 K/uL (1.0-4.3); LYMPH % 42.1 % (20.0-40.0); MEAN CELL VOLUME 79.2 fL (80.0-94.0); MEAN CORPUSCULAR HEMOGLOBIN 26.1 pg (27.0-31.0); MEAN PLATELET VOLUME 7.7 fL (7.2-11.7); MONO # 0.5 K/uL (0.0-0.8); MONO % 7.8 % (0.0-10.0); NEUT # 2.8 K/uL (1.8-7.0); NEUT % 41.1 % (50.0-75.0); NRBC % 0.1 % (0.0-2.0); RBC 5.51 Mil/uL (4.40-5.90); RED CELL DISTRIBUTION WIDTH 15.4 % (11.5-14.5); WHITE BLOOD COUNT 6.7 K/uL (4.8-10.8)
[2018-12-10 04:08] LABS: URINE BILIRUBIN NEGATIVE (NEGATIVE); URINE BLOOD NEGATIVE (NEGATIVE); URINE CLARITY Clear (Clear); URINE COLOR Straw (YELLOW); URINE GLUCOSE (UA) NORMAL (Normal); URINE LEUKOCYTE ESTERASE NEG Leu/uL (Negative); URINE PROTEIN NEGATIVE (NEGATIVE); URINE UROBILINOGEN NORMAL mg/dL (0.2-1.0)
[2018-12-10 04:22] LABS: OPIATES, UR NEGATIVE (NEGATIVE); PHENCYCLIDINE, UR NEGATIVE (NEGATIVE)
[2018-12-10 04:39] LABS: BARBITURATES, UR POSITIVE (NEGATIVE); BENZODIAZEPINES, UR POSITIVE (NEGATIVE)
[2018-12-10 04:40] LABS: ALB/GLOB RATIO 1.6 (1.0-2.1); ALBUMIN 4.9 g/dL (3.5-5.0); ALT/SGPT 32 U/L (21-72); AST/SGOT 43 U/L (17-59); BLOOD UREA NITROGEN 10 mg/dL (9-20); CALCIUM 9.3 mg/dl (8.6-10.4); GFR NON-AFRICAN AMERICAN > 60
--- NOTE | 2018-12-10 04:42 | C.PDOC ---
History Of Present Illness 23 year old male brought to the ED by EMS for evaluation of alcohol intoxication. Patient admits to binge drinking for the past day, and is requesting alcohol detox. He denies SI/HI, hallucinations, falls/injuries. Time Seen by Provider: 12/10/18 03:18 Chief Complaint (Nursing): Substance Abuse History Per: Patient History/Exam Limitations: intoxication Current Symptoms Are (Timing): Still Present Suicide/Self Injury Attempted (Context): None Modifying Factor(s): Alcohol Severity: Moderate Associated Symptoms: denies: Depression, Suicidal Thoughts, Suicidal Plan Involuntary Hold By: Emergency Physician Additional History Per: Patient, EMS Past Medical History Reviewed: Historical Data, Nursing Documentation, Vital Signs Vital Signs: Last Vital Signs Temp 98.7 F 12/10/18 03:29 Pulse 89 12/10/18 03:29 Resp 22 12/10/18 03:29 BP 147/80 12/10/18 03:29 Pulse Ox 98 12/10/18 03:29 - Medical History PMH: Anxiety, Depression, Seizures (alcoholic seiZure) Surgical History: No Surg Hx - [facility] Procedures DETOXIFICATION SERVICES FOR SUBSTANCE ABUSE TREATMENT (08/28/18) GROUP SOLDER TECHNICIAN FOR SUBSTANCE ABUSE TREATMENT, PSYCHOEDUCATION (08/28/18) GROUP SOLDER TECHNICIAN FOR SUBSTANCE ABUSE, COGNITIVE BEHAVIORAL (08/28/18) GROUP PSYCHOTHERAPY (08/28/18) INDIV PSYCHOTHERAPY FOR SUBSTANCE ABUSE TREATMENT, SUPPORT (08/28/18) INDIV PSYCHOTHERAPY FOR SUBSTANCE ABUSE, COGNITIV BEHAVIORAL (08/28/18) INDIV PSYCHOTHERAPY FOR SUBSTANCE ABUSE, PSYCHOEDUCATION (08/28/18) INDIVIDUAL PSYCHOTHERAPY, COGNITIVE-BEHAVIORAL (08/28/18) INDIVIDUAL PSYCHOTHERAPY, SUPPORTIVE (08/28/18) Family History: States: No Known Family Hx - Social History Hx Alcohol Use: Yes Hx Substance Use: Yes (denies today any drugs) - Immunization History Hx Tetanus Toxoid Vaccination: No Hx Influenza Vaccination: No Hx Pneumococcal Vaccination: No Review Of Systems Constitutional: Negative for: Fever, Chills Cardiovascular: Negative for: Chest Pain, Palpitations Respiratory: Negative for: Shortness of Breath Gastrointestinal: Negative for: Nausea, Vomiting, Abdominal Pain, Diarrhea Skin: Negative for: Rash Neurological: Negative for: Weakness, Numbness Psych: Positive for: Other (alcohol intoxication). Negative for: Depression, Suicidal ideation Physical Exam - Physical Exam Appears: Well, Non-toxic, No Acute Distress, Other (intoxicated ) Skin: Normal Color, Warm, Dry Head: Atraumatic, Normacephalic Oral Mucosa: Moist Neck: No Midline Cervical Tenderness, No Paracervical Tenderness, No Step Off Deformity, Supple Cardiovascular: Rhythm Regular Respiratory: Normal Breath Sounds, No Rales, No Rhonchi, No Wheezing Gastrointestinal/Abdominal: Normal Exam, Bowel Sounds, Soft, No Tenderness Extremity: Normal ROM, No Tenderness, No Swelling Neurological/Psych: Other (intoxicated, awake, able to follow commands, moving all 4 extremities spontaneously) Gait: Steady ED Course And Treatment - Laboratory Results Result Diagrams: 12/10/18 04:03 12/10/18 04:03 Lab Results: Total Bilirubin 0.4 mg/dL (0.2-1.3) 12/10/18 04:03 AST 43 U/L (17-59) 12/10/18 04:03 ALT 32 U/L (21-72) 12/10/18 04:03 Alkaline Phosphatase 78 U/L (38-126) 12/10/18 04:03 Total Protein 7.9 g/dL (6.3-8.3) 12/10/18 04:03 Albumin 4.9 g/dL (3.5-5.0) 12/10/18 04:03 Globulin 3.0 gm/dL (2.2-3.9) 12/10/18 04:03 Albumin/Globulin Ratio 1.6 (1.0-2.1) 12/10/18 04:03 Urine Color Straw (YELLOW) 12/10/18 03:35 Urine Clarity Clear (Clear) 12/10/18 03:35 Urine pH 5.0 (5.0-8.0) 12/10/18 03:35 Ur Specific [place] 1.004 (1.003-1.030) 12/10/18 03:35 Urine Protein Negative mg/dL (NEGATIVE) 12/10/18 03:35 Urine Glucose (UA) Normal mg/dL (Normal) 12/10/18 03:35 Urine Ketones Negative mg/dL (NEGATIVE) 12/10/18 03:35 Urine Blood Negative (NEGATIVE) 12/10/18 03:35 Urine Nitrate Negative (NEGATIVE) 12/10/18 03:35 Urine Bilirubin Negative (NEGATIVE) 12/10/18 03:35 Urine Urobilinogen Normal mg/dL (0.2-1.0) 12/10/18 03:35 Ur Leukocyte Esterase Neg Ailyn/uL (Negative) 12/10/18 03:35 O2 Sat by Pulse Oximetry: 98 (ON RA) Pulse Ox Interpretation: Normal Progress Note: Blood work, UA, UDS ordered and reviewed. 5:20am- Patient medically cleared, pending crisis. Disposition - Disposition Disposition Time: 07:00 Condition: STABLE Forms: [employer] [facility] (Citizen Of [place]) - Clinical Impression Clinical Impression: Alcohol intoxication - Scribe Statement The provider has reviewed the documentation as recorded by the Scribe Hiram Bettencourt All medical record entries made by the Scribe were at my direction and personally dictated by me. I have reviewed the chart and agree that the record accurately reflects my personal performance of the history, physical exam, medical decision making, and the department course for this patient. I have also personally directed, reviewed, and agree with the discharge instructions and disposition. Physician Patient Turnover Patient Signed Over To: David Rider Handoff Comments: pending crisis evaluation
--- NOTE | 2018-12-10 08:56 | PCM.BM ---
Treatment Plan Problems - Problems identified on initial assessmt Ieffective family coping Date Initiated: 12/10/18 Time Initiated: 08:56 Assessment reference: NA Status: Active knowledge of deficit, alcohol use Date Initiated: 12/10/18 Time Initiated: 08:56 Assessment reference: NA Status: Active Treatment assets and liabiliti Patient Assests: cooperative (Alcohol), ADL independent, negotiates basic needs, cognitively intact Patient Liabilities: financial problems, substance abuse, legal issue
[2018-12-10 16:16] VITALS: BP 120/71; PULSE 74; RESP 19; TEMP 98.2; O2SAT 95
--- NOTE | 2018-12-10 22:28 | PCM.PSYCH ---
Initial Psychiatric Evaluation - Initial Psychiatric Evaluation Type of Admission: Voluntary Legal Status: Capacity Chief Complaint (in patient's own words): "I want detox from alcohol" History of Present Illness and Precipitating Events: Patient is a 23 year old male who can to the ED for alcohol detox, he reports drinking a gallon of hard liquor daily since age 15. He is single, and unemployed, living with his parents in [place]. He reports that his longest period of sobriety was 2 months while in an inpatient rehab in [place]. He has never attended AA meetings but has attended rehab and detox programs, most recently he was at [facility] detox. Patient reports a history of blackouts and one seizure (alcohol related) in May 2018 but denies any DTs or seizures. Patient admits to daily marijuana use but denies any tobacco or illicit drug use. Pt currently denies any SI or HI, denies delusions, hallucinations. Psych Hx: AMAYA - Pt states he was taking Seroquel, Buspar, and Gabapentin for his anxiety but stopped being compliant after relapsing PMHx: denies Family Psych Hx: none Past Psychiatric History - Past Psychiatric History Pertinent Medical Hx (Current Medical&Sleep Prob, Allergies): Allergies Allergy/AdvReac Type Severity Reaction Status Date / Time No Known Allergies Allergy Verified 12/10/18 03:34 No Known Home Med 08/28/18 Review of Systems - Psychiatric Psychiatric: As Per HPI, Abnormal Sleep Pattern, Anxiety, Behavioral Changes, Depression, Irritability, Mood Swings Mental Status Examination - Personal Presentation Personal Presentation: Looks stated age - Affect Affect: Constricted, Depressed - Motor Activity Motor Activity: Calm - Reliability in Providing Information Reliability in Providing Information: Fair - Speech Speech: Relevant, Coherent - Mood Mood: Depressed - Formal Thought Process Formal Thought Process: No Impairment - Obsessions/Compulsions Obsessions: None Compulsions: None - Cognitive Functions Orientation: Person, Place, Situation, Time Sensorium: Alert Attention/Concentration: Attentive Abstract Thinking: [place] Estimate of Intelligence: Average Judgement: Imparied, as evidence by: Poor judgement - Risk Risk: Withdrawal - Strength & Assets Inventory Strength & Assets Inventory: Family support DSM 5 DX - DSM 5 DSM 5 Diagnosis: Alcohol Use Disorder - Recommended/Plan of Treatment Treatment Recommendations and Plan of Treatment: Taper with Librium Gabapentin for augmentation if needed As needed medications - Librium All risks, benefits and alternatives of the meds discussed, and the pt agreed and understood. Attend groups and activities Supportive therapy and psychoeducation AL for abstinence CBT for relapse prevention Encourage MAT Refer to rehab or IOP, and self-help groups Teach healthy lifestyle methods, i.e. diet, exercise, meditation Smoking cessation with AL Nicotine patch if needed 35 min - Smoking Cessation Smoking Cessation Initiated: No
--- NOTE | 2018-12-10 22:37 | PCM.PYCHDC ---
Mental Status Examination - Mental Status Examination Orientation: Person, Place, Situation, Time Memory: Intact Mood: Depressed, Anxious Affect: Constricted Speech: Appropriate Attention: WNL Concentration: WNL Association: WNL Fund of Knowledge: WNL Formal Thought Process: No Impairment Suicidal Ideation: No Current Homicidal Ideation?: No Discharge Summary - Discharge Note Reason for Hospitalization: Alcohol Detox Laboratory Data: Abnormal Lab Results 12/10/18 12/10/18 12/10/18 03:35 03:40 04:03 WBC 6.7 RBC 5.51 Hgb 14.4 Hct 43.6 MCV 79.2 L MCH 26.1 L MCHC 33.0 RDW 15.4 H Plt Count 283 MPV 7.7 Neut % (Auto) 41.1 L Lymph % (Auto) 42.1 H [place] % (Auto) 7.8 Eos % (Auto) 7.9 H Baso % (Auto) 1.1 Neut # (Auto) 2.8 Lymph # (Auto) 2.8 [place] # (Auto) 0.5 Eos # (Auto) 0.5 Baso # (Auto) 0.1 Sodium Potassium Chloride Carbon Dioxide Anion Gap BUN Creatinine Est GFR ( Amer) Est GFR (Non-Af Amer) POC Glucose (mg/dL) 91 Random Glucose Calcium Total Bilirubin AST ALT Alkaline Phosphatase Total Protein Albumin Globulin Albumin/Globulin Ratio Urine Color Straw Urine Clarity Clear Urine pH 5.0 Ur Specific [place] 1.004 Urine Protein Negative Urine Glucose (UA) Normal Urine Ketones Negative Urine Blood Negative Urine Nitrate Negative Urine Bilirubin Negative Urine Urobilinogen Normal Ur Leukocyte Esterase Neg Urine Opiates Screen Urine Methadone Screen Ur Barbiturates Screen Ur Phencyclidine Scrn Ur Amphetamines Screen U Benzodiazepines Scrn U Oth Cocaine Metabols U Cannabinoids Screen Alcohol, Quantitative 12/10/18 12/10/18 04:03 04:03 WBC RBC Hgb Hct MCV MCH MCHC RDW Plt Count MPV Neut % (Auto) Lymph % (Auto) [place] % (Auto) Eos % (Auto) Baso % (Auto) Neut # (Auto) Lymph # (Auto) [place] # (Auto) Eos # (Auto) Baso # (Auto) Sodium 143 Potassium 3.9 Chloride 103 Carbon Dioxide 23 Anion Gap 21 H BUN 10 Creatinine 0.8 Est GFR ( Amer) > 60 Est GFR (Non-Af Amer) > 60 POC Glucose (mg/dL) Random Glucose 94 D Calcium 9.3 Total Bilirubin 0.4 AST 43 ALT 32 Alkaline Phosphatase 78 Total Protein 7.9 Albumin 4.9 Globulin 3.0 Albumin/Globulin Ratio 1.6 Urine Color Urine Clarity Urine pH Ur Specific [place] Urine Protein Urine Glucose (UA) Urine Ketones Urine Blood Urine Nitrate Urine Bilirubin Urine Urobilinogen Ur Leukocyte Esterase Urine Opiates Screen Negative Urine Methadone Screen Negative Ur Barbiturates Screen Positive H Ur Phencyclidine Scrn Negative Ur Amphetamines Screen Negative U Benzodiazepines Scrn Positive U Oth Cocaine Metabols Negative U Cannabinoids Screen Positive H Alcohol, Quantitative 281 H Consultations:: List each consultation separately and include: 1. Reason for request. 2. Findings. 3. Follow-up Summary of Hospital Course include:: 1. Description of specific treatment plan utilized for patients during their course of treatmen. 2. Summarize the time- course for resolution of acute symptoms and/or regressed behaviors. 3. Describe issues identified and worked on during hospitalization. 4. Describe medication utilized. 5. Describe medical problems identified and treated. 6. Reassessment of suicide risk Summary of Hospital Course: Patient is a 23 year old male who can to the ED for alcohol detox, he reports drinking a gallon of hard liquor daily since age 15. He is single, and unemployed, living with his parents in [place]. He reports that his longest period of sobriety was 2 months while in an inpatient rehab in [place]. He has never attended AA meetings but has attended rehab and detox programs, most recently he was at [facility] detox. Patient reports a history of blackouts and one seizure (alcohol related) in May 2018 but denies any DTs or seizures. Patient admits to daily marijuana use but denies any tobacco or illicit drug use. Pt currently denies any SI or HI, denies delusions, hallucinations. Psych Hx: AMAYA - Pt states he was taking Seroquel, Buspar, and Gabapentin for his anxiety but stopped being compliant after relapsing PMHx: denies Family Psych Hx: none - Final Diagnosis (DSM 5) Condition upon Discharge: FAIR Disposition: AGAINST MEDICAL ADVICE Follow-up Treatment Plan: Patient was made aware of the risks of leaving AMA including relapse, overdose, and even , he understood but still left AMA 15 min - Smoking Cessation Smoking Cessation Medication prescribed: No - Antipsychotic Medications Pt discharged on 2 or more routine antipsychotic medications: No
== END 2018-12-10 18:46 | disposition left against medical advice (07) | DRG 749 ==
LOC: C.ER 03:14 → C.7D 07:51 → OBSVTOIN 09:30
PROVIDERS: ADMIT Psychiatry & Neurology Psychiatry; ATTEND Psychiatry & Neurology Psychiatry
DX: F10.220 Alcohol dependence with intoxication, uncomplicated (principal); Y90.8 Blood alcohol level of 240 mg/100 ml or more; F12.10 Cannabis abuse, uncomplicated; F41.1 Generalized anxiety disorder; Z91.14 Patient's other noncompliance with medication regimen